=== PATIENT | male | born 1995 | race American Indian/Alaskan Native ===

== ENCOUNTER 2016-10-21 00:44 | Emergency (ER) | payer OTHER ==
[2016-10-21 00:54] VITALS: BP 133/81
[2016-10-21 01:41] LABS: Bacteria,Urine 1+ /HPF (Negative); Bilirubin,Urine NEG (Negative); Blood,Urine NEG (Negative); Ketones,Urine TR mg/dL (Negative); Leukocyte Esterase,Urine LG (Negative); Mucus,Urine 3+ /HPF; Nitrite,Urine NEG (Negative)
[2016-10-21 01:53] LABS: WBC,Urine > 182.0 /HPF (0.0-6.0)
[2016-10-21] MEDS ORDERED: XYLOCAINE 1% MPF 5 mL INFILTRATI ONE (02:27)
[2016-10-21] MEDS ORDERED: ROCEPHIN IM ONE (02:27)
[2016-10-21] MEDS ORDERED: ZITHROMAX PO ONE (02:27)
--- NOTE | 2016-10-21 02:33 | Emergency Department Report ---
ED Male HPI - General Chief complaint: Urogenital-Male Stated complaint: PENILE DISCHARGE Time Seen by Provider: 10/21/16 02:27 Source: patient Mode of arrival: Ambulatory Limitations: No Limitations - History of Present Illness Initial comments: This is a 20-year-old male well-nourished with nontoxic or ill in appearance that presents with penile discharge as well as burning sensation while urinating for 2 days. Patient stated had unprotected sex one week ago with a female with no condom usage. Patient describes discharge as yellow colored. Patient denies any penile lesions, fever, chills, chest pain, short of breath, numbness, tingling, abdominal pain, nausea or vomiting. Patient denies any drug allergies. Patient is concerned about a sexually transmitted disease. Patient has a past medical history. Patient is a heterosexual. MD Complaint: penile discharge, dysuria -: Gradual, days(s) (2) Radiation: none Improves with: none Worsens with: urination discharge, dysuria. denies: swelling, mass, rash, urinary retention, blood in urine, fever, nausea/vomiting, incontinence - Related Data Sexually active: Yes Previous Rx's Medication Instructions Recorded Last Taken Type Sulfamethoxazole/Trimethoprim 1 each PO BID #20 tablet 10/21/16 Unknown Rx [Bactrim DS TAB] Allergies Allergy/AdvReac Type Severity Reaction Status Date / Time No Known Allergies Allergy Verified 10/21/16 00:50 ED Review of Systems ROS: Stated complaint: PENILE DISCHARGE Other details as noted in HPI Constitutional: denies: chills, fever Eyes: denies: eye pain, eye discharge, vision change ENT: denies: ear pain, throat pain Respiratory: denies: cough, shortness of breath, wheezing Cardiovascular: denies: chest pain, palpitations Endocrine: no symptoms reported Gastrointestinal: denies: abdominal pain, nausea, diarrhea Genitourinary: denies: urgency, dysuria Musculoskeletal: denies: back pain, joint swelling, arthralgia Skin: denies: rash, lesions Neurological: denies: headache, weakness, paresthesias Psychiatric: denies: anxiety, depression Hematological/Lymphatic: denies: easy bleeding, easy bruising ED Past Medical Hx - Past Medical History Previous Medical History?: No - Surgical History Past Surgical History?: No - Social History Smoking Status: Current Every Day Smoker Substance Use Type: Marijuana - Medications Home Medications: Home Medications Medication Instructions Recorded Confirmed Last Taken Type Sulfamethoxazole/Trimethoprim 1 each PO BID #20 tablet 10/21/16 Unknown Rx [Bactrim DS TAB] ED Physical Exam - General Limitations: No Limitations General appearance: alert, in no apparent distress - Head Head exam: Present: atraumatic, normocephalic, normal inspection - Eye Eye exam: Present: normal appearance, PERRL, EOMI. Absent: scleral icterus, conjunctival injection, nystagmus, periorbital swelling, periorbital tenderness Pupils: Present: normal accommodation - ENT ENT exam: Present: normal exam, normal orophraynx, mucous membranes moist, TM's normal bilaterally, normal external ear exam - Neck Neck exam: Present: normal inspection, full ROM. Absent: tenderness, meningismus, lymphadenopathy, thyromegaly - Respiratory Respiratory exam: Present: normal lung sounds bilaterally. Absent: respiratory distress, wheezes, rales, rhonchi, stridor, chest wall tenderness, accessory muscle use, decreased breath sounds, prolonged expiratory - Cardiovascular Cardiovascular Exam: Present: regular rate, normal rhythm, normal heart sounds. Absent: bradycardia, tachycardia, irregular rhythm, systolic murmur, diastolic murmur, rubs, gallop - GI/Abdominal GI/Abdominal exam: Present: soft, normal bowel sounds. Absent: distended, tenderness, guarding, rebound, rigid, diminished bowel sounds, hyperactive bowel sounds, hypoactive bowel sounds - Rectal Rectal exam: Present: deferred - exam: Present: normal inspection. Absent: testicular tenderness, urethral discharge, scrotal swelling, vertical testicular lie External exam: Present: normal external exam. Absent: erythema, swelling, lesions, lacerations, ecchymosis, bleeding - Extremities Exam Extremities exam: Present: normal inspection, full ROM, normal capillary refill. Absent: tenderness, pedal edema, joint swelling, calf tenderness - Back Exam Back exam: Present: normal inspection, full ROM. Absent: tenderness, CVA tenderness (R), CVA tenderness (L), muscle spasm, paraspinal tenderness, vertebral tenderness - Neurological Exam Neurological exam: Present: alert, oriented X3, CN II-XII intact, normal gait - Psychiatric Psychiatric exam: Present: normal affect, normal mood - Skin Skin exam: Present: warm, dry, intact, normal color. Absent: rash ED Course Vital Signs 10/21/16 00:50 Temperature 98.2 F Pulse Rate 56 L Respiratory 20 Rate Blood Pressure 133/81 O2 Sat by Pulse 98 Oximetry ED Medical Decision Making - Medical Decision Making Ed course: This is a 20-year-old male that presents with UTI and possible STD exposure. 1- A UA and gonorrhea/chlamydia has been obtained. UA shows elevated white blood cells. 2- patient is concerned about STD exposure and was treated with Rocephin 250 mg IM and azithromycin 1 g in the ED. 3- patient was instructed to return to the hospital at medical records to receive results of gonorrhea and chlamydia in 7 days. 4- patient received Bactrim for 10 days. 5- patient was instructed to finish full course of antibiotics and to follow up with his primary care doctor in 3-5 days. 6- at time time of discharge, the patient does not seem toxic or ill in appearance. No acute signs of distress noted. Patient agrees to discharge treatment plan of care. No further questions noted by the patient. Critical care attestation.: If time is entered above; I have spent that time in minutes in the direct care of this critically ill patient, excluding procedure time. ED Disposition Clinical Impression: Possible exposure to STD UTI (urinary tract infection) Qualifiers: Urinary tract infection type: site unspecified Hematuria presence: without hematuria Qualified Code(s): N39.0 - Urinary tract infection, site not specified Disposition: DC-01 TO HOME OR SELFCARE Is pt being admited?: No Does the pt Need Aspirin: No Condition: Stable Instructions: Dysuria (ED), Urinary Tract Infection in Men (ED), Safe Sex (ED) , Sulfamethoxazole/Trimethoprim (By mouth) Additional Instructions: Take antibiotics as prescribed. Finish full course of antibiotics. Follow-up with her primary care doctor in 3-5 days or if symptoms worsen and unbearable before back to emergency room. Come back to the hospital to medical records to obtain results of gonorrhea and Chlamydia in 7 days. Prescriptions: Sulfamethoxazole/Trimethoprim [Bactrim DS TAB] 1 each PO BID #20 tablet Referrals: JONAH LOPEZ MD [Primary Care Provider] - 3-5 Days FENG HERNANDEZ JR, MD [Staff Physician] - 3-[address] [facility] [Outside] - 3-5 Days [facility] [Outside] - 3-5 Days Forms: Work/School Release Form(ED)
== END 2016-10-21 04:34 | disposition home or self-care (01) ==
LOC: ED 00:44
DX: N39.0 Urinary tract infection, site not specified (principal); F17.200 Nicotine dependence, unspecified, uncomplicated
CPT/HCPCS: 81001; 87591; 96372; 99283; J0696

== ENCOUNTER 2021-06-13 09:39 | Emergency (ER) | payer SELFPAY ==
[2021-06-13 10:02] VITALS: BP 122/70
[2021-06-13] MEDS ORDERED: LIDOCAINE-MPF (1%) 10 MG/1 ML VIAL 5 ML INFILTRATI ONE (10:04)
--- NOTE | 2021-06-13 10:08 | Emergency Department Report ---
HPI - General Chief Complaint: Urogenital-Male Time Seen by Provider: 06/13/21 10:04 - HPI HPI: 25-year-old -[place] male presents to the emergency department with complaint of exposure to an STD. The patient says "this girl that I have been talking with texted me yesterday and told me that she tested positive for trichomoniasis." The patient says that he has had some mild penile discharge. He denies any rash or lesions to the genitals. He denies any penile, testicular/scrotal, or abdominal pains. He has not taken anything for symptoms prior to presentation. ED Past Medical Hx - Social History Smoking Status: Current Every Day Smoker Substance Use Type: Marijuana - Medications Home Medications: Home Medications Medication Instructions Recorded Confirmed Last Taken Type Sulfamethoxazole/Trimethoprim 1 each PO BID #20 tablet 10/21/16 Unknown Rx [Bactrim DS TAB] Doxycycline Hyclate [Doxycycline 100 mg PO Q12HR #14 tab 06/13/21 Unknown Rx Hyclate TAB] metroNIDAZOLE [Flagyl] 500 mg PO Q12HR #14 tab 06/13/21 Unknown Rx ED Review of Systems ROS: Stated complaint: CHECK UP Other details as noted in HPI Comment: All other systems reviewed and negative Gastrointestinal: denies: abdominal pain Genitourinary: discharge. denies: dysuria, testicular pain Skin: denies: rash, lesions Physical Exam - Physical Exam Vital Signs: Vital Signs 06/13/21 09:45 Temperature 98.1 F Pulse Rate 57 L Respiratory 16 Rate Blood Pressure 122/70 O2 Sat by Pulse 100 Oximetry Physical Exam: GENERAL: The patient is well-developed well-nourished. HENT: Normocephalic. Atraumatic. Patient has moist mucous membranes. EYES: Extraocular motions are intact. NECK: Supple. Trachea is midline. CHEST/LUNGS: Clear to auscultation. There is no respiratory distress noted. HEART/CARDIOVASCULAR: Regular. There is no tachycardia. There is no murmur. ABDOMEN: Abdomen is soft, nontender. There is no abdominal distention. SKIN: Skin is warm and dry. NEURO: The patient is awake, alert, and oriented. The patient is cooperative. Normal speech. MUSCULOSKELETAL: There is no tenderness or deformity. : No penile or scrotal rash or lesions seen. No discharge seen. ED Course Vital Signs 06/13/21 09:45 Temperature 98.1 F Pulse Rate 57 L Respiratory 16 Rate Blood Pressure 122/70 O2 Sat by Pulse 100 Oximetry ED Medical Decision Making - Medical Decision Making This patient presents to the emergency department with the complaint that he was exposed to trichomoniasis. He does say that there has been a small amount of penile discharge seen. On examination there is no discharge, rash or lesions seen. Vital signs reassuring including being afebrile. The patient will be empirically treated with Flagyl for trichomoniasis, and Rocephin/doxycycline for G/C. He has been given an outpatient referral for the [facility] for any further STD follow-up. Critical Care Time: No Critical care attestation.: If time is entered above; I have spent that time in minutes in the direct care of this critically ill patient, excluding procedure time. ED Disposition Clinical Impression: Exposure to trichomonas, Urethritis Disposition: HOME / SELF CARE / HOMELESS Is pt being admited?: No Condition: Stable Instructions: Trichomoniasis, Safe Sex Additional Instructions: Please follow-up with a primary care physician in the next few days. I have given you a referral for the [facility] to follow-up regarding any further STD testing. Take the medications as prescribed. Please avoid any sexual intercourse or contact until 1 week after finishing the antibiotics. One of the antibiotics, Flagyl/metronidazole, has a very bad reaction if mixed with alcohol of any quantity. Return to the emergency department with any worsening of your symptoms, new or concerning symptoms not addressed during this current emergency department visit, or with any acute distress. Prescriptions: Doxycycline Hyclate [Doxycycline Hyclate TAB] 100 mg PO Q12HR #14 tab metroNIDAZOLE [Flagyl] 500 mg PO Q12HR #14 tab Referrals: [facility] [Outside] - 3-5 Days Forms: STI Treatment and Prevention Time of Disposition: 10:06
== END 2021-06-13 10:21 | disposition home or self-care (01) ==
LOC: ED 09:39
DX: A59.9 Trichomoniasis, unspecified (principal); N34.2 Other urethritis; F17.200 Nicotine dependence, unspecified, uncomplicated; F12.90 Cannabis use, unspecified, uncomplicated
CPT/HCPCS: 96372; 99282; J0696; J3490